=== PATIENT | female | born 1990 | race Caucasian/White ===

== ENCOUNTER 2019-05-05 09:28 | Emergency (ER) | payer MEDICAID ==
[~2019-05-05] VITALS: Ht 162.6 cm; Wt 46.2 kg
[2019-05-05 10:09] LABS: BASOPHILS # (AUTO) 0.04 x10^3/uL (0-0.1); BASOPHILS % (AUTO) 1 % (0-1); EOSINOPHILS # (AUTO) 0.11 x10^3/uL (0-0.4); EOSINOPHILS % (AUTO) 2 % (1-7); LYMPHOCYTES % (AUTO) 31 % (22-44); MD NO; MEAN CORPUSCULAR HEMOGLOBIN 31.7 pg (27.0-34.8); MEAN CORPUSCULAR HGB CONC 33.7 g/dL (32.4-35.8); MEAN CORPUSCULAR VOLUME 93.9 fL (80-100); MEAN PLATELET VOLUME 7.2 fL (7.4-10.4); MONOCYTES # (AUTO) 0.44 x10^3/uL (0.2-0.8); MONOCYTES % (AUTO) 8 % (2-9); NEUTROPHILS % (AUTO) 59 % (42-75); PLATELET COUNT 244 x10^3/uL (130-400); RED BLOOD COUNT 5.05 x10^6/uL (3.82-5.3)
[2019-05-05 10:20] LABS: ALBUMIN 4.6 g/dL (3.4-5.0); ANION GAP 5 mmol/L (5-15); CALCIUM 8.7 mg/dL (8.5-10.1); CHLORIDE 107 mmol/L (98-107); CREATININE 0.83 mg/dL (0.55-1.02)
--- NOTE | 2019-05-05 10:35 | NUR ---
PT IN ROOM AND IN GOWN. BLANKET PROVIDED. NIBP AND O2 MONITORING IN PLACE. PT EXPRESSES NO WANTS OR NEEDS AT THIS TIME. PT UPDATED ON POC AND AGREES AT THIS TIME. AWAITING US.
[2019-05-05 10:45] LABS: MICROSCOPIC NOT IND
[2019-05-05 10:51] LABS: CULTURE INDICATED? NO
[2019-05-05 11:12] VITALS: BP 102/71
--- NOTE | 2019-05-05 11:12 | NUR ---
PT BACK FROM US AT THIS TIME.
== END 2019-05-05 12:18 | disposition home or self-care (01) ==
LOC: ED 11:57
DX: R10.2 Pelvic and perineal pain (principal); J45.909 Unspecified asthma, uncomplicated; F17.200 Nicotine dependence, unspecified, uncomplicated
CPT/HCPCS: 36415; 76830; 80048; 81003; 82040; 84703; 85025; 99284

== ENCOUNTER 2019-05-17 18:50 | Emergency (ER) | payer MEDICAID ==
[~2019-05-17] VITALS: Ht 162.6 cm; Wt 47.0 kg
[2019-05-17] MEDS ORDERED: KETOROLAC 30 MG/1 ML ONE (19:44)
[2019-05-17] MEDS ORDERED: METHOCARBAMOL 750 MG TABLET ONE (19:44)
--- NOTE | 2019-05-17 19:45 | NUR ---
PT IN RAD AT THIS TIME.
--- NOTE | 2019-05-17 19:54 | NUR ---
PT MEDICATED PER AUG. POC DISCUSSED. PT DENIES FURTHER NEEDS AT THIS TIME.
[2019-05-17] MEDS ORDERED: KETOROLAC 30 MG/1 ML IM ONE (20:00)
[2019-05-17] MEDS ORDERED: METHOCARBAMOL 750 MG TABLET PO ONE (20:00)
[2019-05-17 20:31] VITALS: BP 102/74
== END 2019-05-17 20:33 | disposition home or self-care (01) ==
LOC: ED 20:15
DX: S29.012A Strain of muscle and tendon of back wall of thorax, initial encounter (principal); G89.29 Other chronic pain; J45.909 Unspecified asthma, uncomplicated; X58.XXXA Exposure to other specified factors, initial encounter; Y93.89 Activity, other specified; Y92.89 Other specified places as the place of occurrence of the external cause; Y99.8 Other external cause status
CPT/HCPCS: 72072; 96372; 99283; J1885

== ENCOUNTER 2019-08-19 22:48 | Emergency (ER) | payer MEDICAID ==
[~2019-08-19] VITALS: Ht 162.6 cm; Wt 45.0 kg
[2019-08-19 22:52] VITALS: BP 114/43
[2019-08-19] MEDS ORDERED: IBUPROFEN 200 MG TABLET ONE (23:08)
--- NOTE | 2019-08-19 23:10 | NUR ---
pt medicated per mar.
--- NOTE | 2019-08-19 23:26 | NUR ---
pt back to room from xray at this time.
[2019-08-19] MEDS ORDERED: IBUPROFEN 200 MG TABLET PO ONE (23:30)
--- NOTE | 2019-08-20 00:11 | NUR ---
pt d/c with d/c summary. all questions answered. pt ambulates to registration desk with steady gait for d/c home. pt denies any other needs pertaining to this visit.
== END 2019-08-20 00:31 | disposition home or self-care (01) ==
LOC: ED 08-20 00:20
DX: M54.5 Low back pain (principal); J45.909 Unspecified asthma, uncomplicated; F17.210 Nicotine dependence, cigarettes, uncomplicated
CPT/HCPCS: 72110; 99283

== ENCOUNTER 2019-12-27 13:05 | Emergency (ER) | payer MEDICAID ==
[~2019-12-27] VITALS: Ht 162.6 cm; Wt 60.0 kg
[2019-12-27] MEDS ORDERED: ONDANSETRON 2MG/ML, 2ML ONE (13:44)
[2019-12-27] MEDS ORDERED: LORazepam 2 MG/ML, 1ML ONE (13:45)
[2019-12-27] MEDS ORDERED: SODIUM CHLORIDE 0.9% 1,000ML IVBOLUS ONE (14:00)
[2019-12-27] MEDS ORDERED: LORazepam 2 MG/ML, 1ML IVPush ONE (14:00)
[2019-12-27] MEDS ORDERED: ONDANSETRON 2MG/ML, 2ML IVPush ONE (14:00)
[2019-12-27] MEDS ORDERED: SODIUM CHLORIDE FLUSH 10ML SYR IVF ONE (14:00)
[2019-12-27 14:22] LABS: BASOPHILS # (AUTO) 0.05 x10^3/uL (0-0.1); BASOPHILS % (AUTO) 1 % (0-1); EOSINOPHILS # (AUTO) 0.04 x10^3/uL (0-0.4); EOSINOPHILS % (AUTO) 0 % (1-7); LYMPHOCYTES # (AUTO) 1.63 x10^3/uL (1-3.4); LYMPHOCYTES % (AUTO) 17 % (22-44); MD NO; MEAN CORPUSCULAR HEMOGLOBIN 31.6 pg (27.0-34.8); MEAN CORPUSCULAR HGB CONC 33.5 g/dL (32.4-35.8); MEAN CORPUSCULAR VOLUME 94.4 fL (80-100); MEAN PLATELET VOLUME 7.4 fL (7.4-10.4); MONOCYTES # (AUTO) 0.63 x10^3/uL (0.2-0.8); MONOCYTES % (AUTO) 6 % (2-9); NEUTROPHILS % (AUTO) 76 % (42-75); PLATELET COUNT 339 x10^3/uL (130-400); RED BLOOD COUNT 4.69 x10^6/uL (3.82-5.3); RED CELL DISTRIBUTION WIDTH 12.8 % (9.6-15.2)
--- NOTE | 2019-12-27 14:23 | NUR ---
Pt reports her heart keeps stopping is giving herself cpr with her cell phone, refuses to stop during triage regardless of the fact she is not actually pushing her sternum. Has been at [facility] and [facility] today and left AMA when asked to stop for an EKG. Pt in bed, refused gown and nuclear monitoring technician. Pt out of bed states that she wants to go. Friend convinces pt to get help, 20 g IV started in left ac, blood drawn and sent to lab, meds given at the same time pt gives herself CPR.
[2019-12-27 14:32] LABS: ALANINE AMINOTRANSFERASE 20 U/L (12-78); ALBUMIN 4.5 g/dL (3.4-5.0); ANION GAP 7 mmol/L (5-15); CALCIUM 9.6 mg/dL (8.5-10.1); CHLORIDE 109 mmol/L (98-107); CREATININE 1.28 mg/dL (0.55-1.02)
[2019-12-27 14:38] LABS: ALKALINE PHOSPHATASE 47 U/L (45-117); BILIRUBIN,TOTAL 0.9 mg/dL (0.2-1.0); TOTAL PROTEIN 7.6 g/dL (6.4-8.2); TROPONIN I < 0.015 ng/mL (0.000-0.045)
--- NOTE | 2019-12-27 14:47 | NUR ---
Pt sleeping rr/even and unlabored
[2019-12-27 16:12] VITALS: BP 132/74
== END 2019-12-27 16:15 | disposition home or self-care (01) ==
LOC: ED 14:53
DX: F41.1 Generalized anxiety disorder (principal); F43.0 Acute stress reaction; I49.3 Ventricular premature depolarization; I49.8 Other specified cardiac arrhythmias; J45.909 Unspecified asthma, uncomplicated
CPT/HCPCS: 36415; 71045; 80053; 84443; 84484; 84703; 85025; 93005; 96374; 96375; 99285; J2060; J2405; J7030

== ENCOUNTER 2020-01-30 22:26 | Emergency (ER) | payer SELFPAY ==
[~2020-01-30] VITALS: Ht 162.6 cm; Wt 48.0 kg
[2020-01-30 22:28] VITALS: BP 102/70
[2020-01-30 23:01] LABS: MICROSCOPIC NOT IND
--- NOTE | 2020-01-30 23:35 | NUR ---
PELVIC CART SET UP AT BEDSIDE. PT PLACED ON PELVIC GURNEY. DENIES ANY FURTHER NEEDS OR CONCERNS, CALL LIGHT IN REACH.
[2020-01-30 23:52] LABS: CLUE CELLS NONE SEEN (NONE SEEN); WET PREP WBCS NONE SEEN (FEW)
[2020-01-30 23:54] LABS: HCG UR SG 1.017 (1.003-1.030)
[2020-01-31] MEDS ORDERED: CEFTRIAXONE 250 MG IM ONE
[2020-01-31] MEDS ORDERED: CEFTRIAXONE 250 MG ONE (00:07)
[2020-01-31] MEDS ORDERED: LIDOCAINE-MPF 1%, 2ML ONE (00:07)
== END 2020-01-31 00:43 | disposition home or self-care (01) ==
LOC: ED 23:22
DX: N89.8 Other specified noninflammatory disorders of vagina (principal); N72 Inflammatory disease of cervix uteri; N84.1 Polyp of cervix uteri; F17.210 Nicotine dependence, cigarettes, uncomplicated; J45.909 Unspecified asthma, uncomplicated
CPT/HCPCS: 81003; 81025; 87210; 87491; 87591; 87808; 99284

== ENCOUNTER 2020-02-11 00:34 | Emergency (ER) | payer MEDICAID ==
[~2020-02-11] VITALS: Ht 162.6 cm; Wt 46.9 kg
--- NOTE | 2020-02-11 01:54 | NUR ---
PT HERE REQUESTING ABX FOR "INFECTION", VAGINAL SINCE 2018, ALSO WANTS HER HEART CHECKED, NO MORE INFOR GIVEN PT STATES THAT SHE WILL NOT HAVE ANOTHER PELVIC EXAM, JUST WANT ABX
[2020-02-11] MEDS ORDERED: metroNIDAZOLE 500 MG TABLET PO STA (03:16)
--- NOTE | 2020-02-11 03:16 | NUR ---
ATTEMPTED TO GIVE MEDICATION TO PATIENT PER MAR. PATIENT STATED THAT SHE DID NOT WANT FLAGYL FOR HER URINARY TRACT INFECTION. PATIENT REQUESTED KEFLEX. PATIENT STATED THAT SHE ONLY WANTED KEFLEX. PATIENT THEN STATED "IF I DON'T GET PRESCRIBED KEFLEX THEN I'M GOING TO PRESS CHARGES BECAUSE OF SODOMIZATION". RN ASKED FOR CLARIFICATION REGARDING PATIENT'S STATEMENT. PATIENT STATED THAT SHE WOULD ONLY TAKE KEFLEX. THE PATIENT WAS GIVEN INFORMATION REGARDING PRESCRIPTIONS AND ANTIBIOTICS THAT CAN TREAT URINARY TRACT INFECTIONS. NO EVIDENCE OF LEARNING EXHIBITED. PRIOR TO THIS ENCOUNTER THE PATIENT WAS GIVEN A URINE CUP AND INSTRUCTIONS ON PROPER COLLECTION PROCESS. THE PATIENT FAILED TO PROVIDE URINE SPECIMEN. PROVIDER HAS BEEN UPDATED ON PLAN OF CARE. WILL CONTINUE TO MONITOR.
[2020-02-11 04:23] LABS: HCG UR SG 1.015 (1.003-1.030); MICROSCOPIC AUTO
[2020-02-11 05:08] LABS: AMPHETAMINE SCREEN, URINE Negative (Negative); BARBITURATE SCREEN, URINE Negative (Negative); BENZODIAZEPINE SCREEN, URINE Negative (Negative); CANNABINOID SCREEN, URINE Negative (Negative); COCAINE SCREEN, URINE Negative (Negative); METHADONE SCREEN, URINE Negative (Negative); OPIATE SCREEN, URINE Negative (Negative)
[2020-02-11 05:48] VITALS: BP 117/61
== END 2020-02-11 05:50 | disposition home or self-care (01) ==
LOC: ED 02:25
DX: R30.0 Dysuria (principal); R39.15 Urgency of urination; I51.7 Cardiomegaly; R94.31 Abnormal electrocardiogram [ECG] [EKG]; R10.2 Pelvic and perineal pain
CPT/HCPCS: 80307; 81001; 81025; 87491; 87591; 93005; 99284

== ENCOUNTER 2020-02-13 08:59 | Emergency (ER) | payer MEDICAID ==
[~2020-02-13] VITALS: Ht 162.6 cm; Wt 46.1 kg
[2020-02-13 09:03] VITALS: BP 95/77
--- NOTE | 2020-02-13 09:22 | NUR ---
PROPERTY LOSS INSURANCE CLAIM ADJUSTER: PT TO ROOM FROM LOBBY AT THIS TIME.
--- NOTE | 2020-02-13 10:19 | NUR ---
Patient ambulatory with steady gait. Left before dc paperwork.
== END 2020-02-13 10:20 | disposition home or self-care (01) ==
LOC: ED 09:36
DX: I49.3 Ventricular premature depolarization (principal); I21.9 Acute myocardial infarction, unspecified; I51.7 Cardiomegaly; J45.909 Unspecified asthma, uncomplicated
CPT/HCPCS: 93005; 99283